=== PATIENT | male | born 1980 | race African-American/Black ===

== ENCOUNTER 2019-05-11 09:23 | Emergency (ER) | payer OTHER ==
[~2019-05-11] VITALS: Wt 124.7 kg
[~2019-05-11 09:23] MED LIST: CIPR500T4 PO; CYCL10TA7 PO; DOXY-214 PO; METR-122 PO; NAPR-985 PO; ONDA4TAB14 PO; TRAM50TA2 PO
[2019-05-11 09:31] VITALS: BP 136/84; PULSE 86; RESP 18
== END 2019-05-11 12:05 | disposition home or self-care (01) ==
LOC: FTE 09:23
DX: R10.9 Unspecified abdominal pain (principal); I10 Essential (primary) hypertension; E11.9 Type 2 diabetes mellitus without complications
CPT/HCPCS: 36415; 76775; 80053; 81001; 85025; Z7502